=== PATIENT | female | born 1935 | race Caucasian/White ===

== ENCOUNTER 2019-11-25 08:42 | Outpatient (CLI) | payer MEDICARE, OTHER, SELFPAY ==
[2019-11-25 09:19] LABS: Alanine Aminotransferase 13 U/L (4-35); Albumin Level 3.9 g/dL (3.5-5.1); Alkaline Phosphatase 72 U/L (38-126); Aspartate Amino Transferase 20 U/L (14-36); Bilirubin,Total 0.3 mg/dL (0.2-1.3); Blood Urea Nitrogen 20 mg/dL (7-17); Calcium 8.7 mg/dL (8.4-10.2); Carbon Dioxide 26 mmol/L (22-30); Chloride 105 mmol/L (98-107); Cholesterol 215 mg/dL (0-200); Estimated Glomerular Filt Rate > 60; Glucose 102 mg/dL (65-105); HDL Direct 55 mg/dL; Potassium 4.1 mmol/L (3.4-5.0); Sodium 138 mmol/L (137-145); Triglycerides 150 mg/dL (<150)
[2019-11-25 09:30] LABS: LDL Cholesterol Direct 141 mg/dL
== END 2019-11-25 08:43 | disposition home or self-care (01) ==
PROVIDERS: PCP Internal Medicine; Visit Provider Internal Medicine
DX: Z51.81 Encounter for therapeutic drug level monitoring (principal); I10 Essential (primary) hypertension; E78.5 Hyperlipidemia, unspecified; Z79.899 Other long term (current) drug therapy
CPT/HCPCS: 36415; 80053; 80061

== ENCOUNTER 2020-05-28 08:06 | Outpatient (CLI) | payer MEDICARE, OTHER, SELFPAY ==
[2020-05-28 08:39] LABS: Alanine Aminotransferase 11 U/L (4-35); Albumin Level 3.9 g/dL (3.5-5.1); Alkaline Phosphatase 65 U/L (38-126); Aspartate Amino Transferase 21 U/L (14-36); Bilirubin,Total 0.5 mg/dL (0.2-1.3); Blood Urea Nitrogen 17 mg/dL (7-17); Calcium 8.7 mg/dL (8.4-10.2); Carbon Dioxide 29 mmol/L (22-30); Chloride 105 mmol/L (98-107); Cholesterol 222 mg/dL (0-200); Estimated Glomerular Filt Rate > 60; Glucose 104 mg/dL (65-105); HDL Direct 47 mg/dL; Sodium 139 mmol/L (137-145); Triglycerides 179 mg/dL (<150)
[2020-05-28 08:50] LABS: LDL Cholesterol Direct 131 mg/dL
== END 2020-05-28 08:07 | disposition home or self-care (01) ==
LOC: ANHLAB 08:08
PROVIDERS: PCP Internal Medicine; Visit Provider Nurse Practitioner
DX: E78.5 Hyperlipidemia, unspecified (principal)
CPT/HCPCS: 36415; 80053; 80061

== ENCOUNTER 2020-07-29 07:53 | Outpatient (CLI) | payer MEDICARE, OTHER, SELFPAY ==
--- NOTE | ~2020-07-29 | DEXA_ITS ---
Bone Density Report Name: Yady Bajwa Age: 84 Sex: Female Ethnicity: White Date of : 1935 Indication: osteopenia; height loss; prior fracture; Referring Provider: ASHKAN GARCIA Study: Bone densitometry was performed. Exam Date: July 29, 2020 Accession number: [id number] Bone Density: Region BMD T-score Z-score Classification AP Spine (L1-L4) 0.913 -1.2 1.6 Osteopenia Femoral Neck (Left) 0.559 -2.6 -0.2 Osteoporosis Total Hip (Left) 0.655 -2.4 -0.1 Osteopenia Total Hip Bilateral Avg 0.680 -2.2 0.1 Osteopenia Femoral Neck (Right) 0.579 -2.4 0.0 Osteopenia Total Hip (Right) 0.704 -1.9 0.3 Osteopenia World Health Organization criteria for BMD impression classify patients as: Normal (T-score at or above -1.0), Osteopenia (T-score between -1.0 and -2.5), or Osteoporosis (T-score at or below -2.5). 10-year Fracture Risk: FRAX not reported because: Some T-score for Spine Total or Hip Total or Femoral Neck at or below -2.5 Previous Exams: Region Exam Age BMD T-score BMD Change BMD Change Date g/cm2 vs Baseline vs Previous AP Spine(L1-L4) 07/29/2020 84 0.913 -1.2 0.090(10.9%)# -0.001(-0.2%) 06/04/2018 82 0.915 -1.2 0.091(11.1%)# 0.024(2.7%)# 03/26/2014 78 0.890 -1.4 0.067(8.1%)# 0.030(3.4%)* 01/08/2012 76 0.861 -1.7 0.037(4.5%)# -0.010(-1.1%)# 01/03/2011 75 0.870 -1.6 0.047(5.7%)* 0.047(5.7%)* 09/30/2007 71 0.824 -2.0 Total Hip(Left) 07/29/2020 84 0.655 -2.4 -0.053(-7.5%)# -0.009(-1.4%) 06/04/2018 82 0.664 -2.3 -0.044(-6.2%)# -0.041(-5.8%)# 03/26/2014 78 0.705 -1.9 -0.003(-0.5%)# -0.016(-2.3%) 01/08/2012 76 0.721 -1.8 0.013(1.9%)# 0.016(2.3%)# 01/03/2011 75 0.705 -1.9 -0.003(-0.4%) -0.003(-0.4%) 09/30/2007 71 0.708 -1.9 Total Hip(Right) 07/29/2020 84 0.704 -1.9 0.024(3.6%)# -0.013(-1.8%) 06/04/2018 82 0.717 -1.8 0.037(5.4%)# -0.015(-2.0%)# 03/26/2014 78 0.732 -1.7 0.052(7.6%)# 0.002(0.2%) 01/08/2012 76 0.730 -1.7 0.050(7.3%)# 0.014(1.9%)# 01/03/2011 75 0.716 -1.9 0.036(5.3%)* 0.036(5.3%)* 09/30/2007 71 0.680 -2.1 *Denotes significance at 95% confidence level, LSC for AP Spine = 0.022 g/cm2, LSC for Total Hip = 0.027 g/cm2 Clinical Information Provided by Patient: Has had a low trauma fracture Has used the following medications: Fosamax (i.e. alendronate), Vitamin D, Calcium Patient maximum height was 65 Menopause Age: 47 Onset of menses at age 14 Numb
--- NOTE | ~2020-07-29 | MM_ITS ---
EXAMINATION: MM screening meliton BI w nahid HISTORY: Screening TECHNIQUE: Craniocaudal and mediolateral oblique 3-D tomosynthesis images were obtained and synthetic 2-D images were generated. CAD analysis was submitted and interpreted. COMPARISON: No prior mammogram is available for comparison at this institution. BREAST PARENCHYMAL COMPOSITION: There are scattered areas of fibroglandular density. FINDINGS: There is no evidence of suspicious mass, calcification, or architectural distortion to sugg est malignancy in either breast. There has been no suspicious interval change. IMPRESSION: 1. No mammographic evidence of malignancy. 2. Recommend routine screening mammography in one year. BI-RADS Category 1: Negative Reviewed, dictated and finalized at location A.
== END 2020-07-29 07:54 | disposition home or self-care (01) ==
PROVIDERS: PCP Internal Medicine; Visit Provider Internal Medicine
DX: Z12.31 Encounter for screening mammogram for malignant neoplasm of breast (principal); Z78.0 Asymptomatic menopausal state; M85.88 Other specified disorders of bone density and structure, other site; M81.0 Age-related osteoporosis without current pathological fracture; M85.852 Other specified disorders of bone density and structure, left thigh; M85.851 Other specified disorders of bone density and structure, right thigh
CPT/HCPCS: 77063; 77067; 77080

== ENCOUNTER 2020-12-31 09:48 | Outpatient (CLI) | payer MEDICARE, OTHER, SELFPAY ==
[2020-12-31 10:29] LABS: Alanine Aminotransferase 14 U/L (4-35); Albumin Level 3.7 g/dL (3.5-5.1); Alkaline Phosphatase 73 U/L (38-126); Anion Gap 1 mmol/L (8-16); Aspartate Amino Transferase 21 U/L (14-36); Bilirubin,Total 0.8 mg/dL (0.2-1.3); Blood Urea Nitrogen 14 mg/dL (7-17); Calcium 8.8 mg/dL (8.4-10.2); Carbon Dioxide 32 mmol/L (22-30); Chloride 106 mmol/L (98-107); Cholesterol 158 mg/dL (0-200); Estimated Glomerular Filt Rate > 60; Glucose 102 mg/dL (65-105); HDL Direct 48 mg/dL; Potassium 4.2 mmol/L (3.4-5.0); Sodium 139 mmol/L (137-145); Triglycerides 135 mg/dL (<150)
[2020-12-31 10:40] LABS: LDL Cholesterol Direct 78 mg/dL
[2020-12-31 11:16] LABS: Vitamin D 25 Hydroxy 38.3 ng/mL
== END 2020-12-31 09:49 | disposition home or self-care (01) ==
LOC: ANHLAB 09:50
PROVIDERS: PCP Internal Medicine; Visit Provider Internal Medicine
DX: E55.9 Vitamin D deficiency, unspecified (principal); I10 Essential (primary) hypertension; Z79.899 Other long term (current) drug therapy; E78.5 Hyperlipidemia, unspecified
CPT/HCPCS: 36415; 80053; 80061; 82306

== ENCOUNTER 2021-01-04 09:28 | Outpatient (CLI) | payer MEDICARE, OTHER, SELFPAY ==
[2021-01-04 10:17] LABS: Alanine Aminotransferase 13 U/L (4-35); Albumin Level 3.8 g/dL (3.5-5.1); Alkaline Phosphatase 72 U/L (38-126); Anion Gap 3 mmol/L (8-16); Aspartate Amino Transferase 21 U/L (14-36); Bilirubin,Total 0.7 mg/dL (0.2-1.3); Blood Urea Nitrogen 17 mg/dL (7-17); Carbon Dioxide 31 mmol/L (22-30); Chloride 106 mmol/L (98-107); Estimated Glomerular Filt Rate > 60; Glucose 104 mg/dL (65-105); Potassium 4.3 mmol/L (3.4-5.0); Sodium 140 mmol/L (137-145)
== END 2021-01-04 09:29 | disposition home or self-care (01) ==
LOC: ANHLAB 09:33
PROVIDERS: PCP Internal Medicine; Visit Provider Nurse Practitioner
DX: E78.2 Mixed hyperlipidemia (principal); R89.9 Unspecified abnormal finding in specimens from other organs, systems and tissues
CPT/HCPCS: 36415; 80053

== ENCOUNTER 2021-07-06 12:56 | Outpatient (CLI) | payer MEDICARE, OTHER, SELFPAY ==
[2021-07-06 15:35] LABS: Alanine Aminotransferase 13 U/L (4-35); Albumin Level 3.8 g/dL (3.5-5.1); Alkaline Phosphatase 79 U/L (38-126); Anion Gap 7 mmol/L (8-16); Aspartate Amino Transferase 25 U/L (14-36); Bilirubin,Total 0.6 mg/dL (0.2-1.3); Blood Urea Nitrogen 17 mg/dL (7-17); Calcium 9.1 mg/dL (8.4-10.2); Carbon Dioxide 28 mmol/L (22-30); Chloride 104 mmol/L (98-107); Cholesterol 166 mg/dL (0-200); Estimated Glomerular Filt Rate > 60; Glucose 101 mg/dL (65-110); HDL Direct 43 mg/dL; Potassium 4.1 mmol/L (3.4-5.0); Sodium 139 mmol/L (137-145); Triglycerides 147 mg/dL (<150)
[2021-07-06 15:45] LABS: LDL Cholesterol Direct 76 mg/dL
[2021-07-06 17:03] LABS: Vitamin D 25 Hydroxy 36.7 ng/mL
== END 2021-07-06 12:57 | disposition home or self-care (01) ==
LOC: ANHLAB 12:57
PROVIDERS: PCP Internal Medicine; Visit Provider Nurse Practitioner
DX: E55.9 Vitamin D deficiency, unspecified (principal); E78.2 Mixed hyperlipidemia
CPT/HCPCS: 36415; 80053; 80061; 82306

== ENCOUNTER 2021-09-27 16:06 | Outpatient (CLI) | payer MEDICARE, OTHER, SELFPAY ==
--- NOTE | ~2021-09-27 | MM_ITS ---
EXAMINATION: MM screening meliton BI w nahid HISTORY: Screening TECHNIQUE: Craniocaudal and mediolateral oblique 3-D tomosynthesis images were obtained and synthetic 2-D images were generated. CAD analysis was submitted and interpreted. COMPARISON: Comparison to multiple prior studies sequentially, with oldest reviewed study dated 05/11. BREAST PARENCHYMAL COMPOSITION: Breast composed of scattered areas of fibroglandular density. FINDINGS: There is no evidence of suspicious mass, calcification, or architectural distortion to sugg est malignancy in either breast. There has been no suspicious interval change. IMPRESSION: 1. No mammographic evidence of malignancy. 2. Recommend routine screening mammography in one year. BI-RADS Category 1: Negative Reviewed, dictated and finalized at location A. E SOURER
== END 2021-09-27 16:07 | disposition home or self-care (01) ==
LOC: ANHIMG 16:07
PROVIDERS: PCP Internal Medicine; Visit Provider Nurse Practitioner
DX: Z12.31 Encounter for screening mammogram for malignant neoplasm of breast (principal)
CPT/HCPCS: 77063; 77067

== ENCOUNTER 2022-01-16 08:51 | Outpatient (CLI) | payer MEDICARE, OTHER, SELFPAY ==
[2022-01-16 09:39] LABS: Alanine Aminotransferase 14 U/L (4-35); Albumin Level 3.7 g/dL (3.5-5.1); Alkaline Phosphatase 74 U/L (38-126); Anion Gap 6 mmol/L (8-16); Aspartate Amino Transferase 24 U/L (14-36); Bilirubin,Total 0.5 mg/dL (0.2-1.3); Blood Urea Nitrogen 14 mg/dL (7-17); Calcium 8.5 mg/dL (8.4-10.2); Carbon Dioxide 31 mmol/L (22-30); Chloride 102 mmol/L (98-107); Cholesterol 156 mg/dL (0-200); Estimated Glomerular Filt Rate > 60; Glucose 103 mg/dL (65-110); HDL Direct 43 mg/dL; Sodium 139 mmol/L (137-145); Triglycerides 97 mg/dL (<150)
[2022-01-16 09:49] LABS: LDL Cholesterol Direct 71 mg/dL
[2022-01-16 09:56] LABS: Vitamin D 25 Hydroxy 33.8 ng/mL
== END 2022-01-16 08:52 | disposition home or self-care (01) ==
LOC: ANHLAB 08:54
PROVIDERS: PCP Internal Medicine; Visit Provider Internal Medicine
DX: E78.2 Mixed hyperlipidemia (principal); I10 Essential (primary) hypertension; E55.9 Vitamin D deficiency, unspecified
CPT/HCPCS: 36415; 80053; 80061; 82306

== ENCOUNTER 2022-07-21 08:22 | Outpatient (CLI) | payer MEDICARE, OTHER, SELFPAY ==
[2022-07-21 09:07] LABS: Alanine Aminotransferase 17 U/L (6-35); Alkaline Phosphatase 79 U/L (38-126); Anion Gap 12 mmol/L (8-16); Aspartate Amino Transferase 25 U/L (14-36); Bilirubin,Total 0.7 mg/dL (0.2-1.3); Blood Urea Nitrogen 15 mg/dL (7-17); Calcium 8.5 mg/dL (8.4-10.2); Carbon Dioxide 28 mmol/L (22-30); Chloride 101 mmol/L (98-107); Cholesterol 181 mg/dL (0-200); Estimated Glomerular Filt Rate > 60; Glucose 105 mg/dL (65-110); HDL Direct 54 mg/dL; Potassium 3.9 mmol/L (3.4-5.0); Sodium 141 mmol/L (137-145); Triglycerides 91 mg/dL (<150)
[2022-07-21 09:19] LABS: LDL Cholesterol Direct 90 mg/dL
[2022-07-21 09:47] LABS: Vitamin D 25 Hydroxy 29.6 ng/mL
== END 2022-07-21 08:23 | disposition home or self-care (01) ==
PROVIDERS: PCP Internal Medicine; Visit Provider Nurse Practitioner
DX: E78.2 Mixed hyperlipidemia (principal); E55.9 Vitamin D deficiency, unspecified
CPT/HCPCS: 36415; 80053; 80061; 82306

== ENCOUNTER → 2022-09-05 09:00 | Outpatient (CLI) | payer MEDICARE, OTHER, SELFPAY ==
--- NOTE | ~2022-09-05 | DEXA_ITS ---
Bone Density Report Name: PIERRE COREY Age: 86 Sex: Female Ethnicity: White Date of : 1935 Indication: postmenopausal; screening for osteoporosis; height loss; prior fracture; Referring Provider: NESTOR TATE Study: Bone densitometry was performed. Exam Date: September 05, 2022 Accession number: [id number] Bone Density: Region BMD T-score Z-score Classification AP Spine (L1-L4) 0.927 -1.1 1.8 Osteopenia Femoral Neck (Left) 0.599 -2.3 0.3 Osteopenia Total Hip (Left) 0.688 -2.1 0.3 Osteopenia Femoral Neck (Right) 0.568 -2.5 0.0 Osteoporosis Total Hip (Right) 0.720 -1.8 0.5 Osteopenia Total Hip Mean 0.704 -2.0 0.4 Osteopenia World Health Organization criteria for BMD impression classify patients as: Normal (T-score at or above -1.0), Osteopenia (T-score between -1.0 and -2.5), or Osteoporosis (T-score at or below -2.5). 10-year Fracture Risk: FRAX not reported because: Some T-score for Spine Total or Hip Total or Femoral Neck at or below -2.5 Treated for osteoporosis Clinical Information Provided by Patient: Has had a low trauma fracture Is being treated for osteoporosis Has used the following medications: Fosamax (i.e. alendronate), MTV Patient maximum height was 65.0 Menopause Age: 50 No regular weight bearing exercise Drinks caffeinated beverages Onset of menses at age 14 Number of children 2 Impression: The patient has established osteoporosis, based on the Right Femoral Neck T-score and the existence of a prior fracture. The patient has risk factors, including: previous fracture. Discussion: It is important to ask patients whether they are taking their medications and to encourage continued and appropriate compliance with their osteoporosis therapies to reduce fracture risk. It is also important to review their risk factors and encourage appropriate calcium and vitamin D intakes, exercise, fall prevention and other lifestyle measures. Follow-Up: Consider a repeat BMD and Vertebral Fracture Assessment (VFA) exam in 2 years or sooner if medically necessary, to reassess this patient's status. Reported by: DEIRDRE on 09/05/2022 9:48:00 AM. Reviewed, dictated and finalized at location AEmmett SIDHU
== END ==
PROVIDERS: PCP Nurse Practitioner; Visit Provider Nurse Practitioner
DX: Z78.0 Asymptomatic menopausal state (principal); M85.88 Other specified disorders of bone density and structure, other site; M85.852 Other specified disorders of bone density and structure, left thigh; M85.851 Other specified disorders of bone density and structure, right thigh; M81.0 Age-related osteoporosis without current pathological fracture
CPT/HCPCS: 77080

== ENCOUNTER 2022-12-05 16:27 | Outpatient (CLI) | payer MEDICARE, OTHER, SELFPAY ==
--- NOTE | ~2022-12-05 | MM_ITS ---
EXAMINATION: MM screening meliton BI w nahid HISTORY: Screening mammogram TECHNIQUE: Craniocaudal and mediolateral oblique 3-D tomosynthesis images were obtained and synthetic 2-D images were generated. CAD analysis was submitted and interpreted. COMPARISON: 09/27/2021, 07/29/2020, 06/17/2019 bilateral screening mammogram examinations BREAST PARENCHYMAL COMPOSITION: There are scattered areas of fibroglandular density. FINDINGS: There is no evidence of suspicious mass, calcification, or architectural distortion to sugg est malignancy in either breast. There has been no suspicious interval change. IMPRESSION: 1. No mammographic evidence of malignancy. 2. Recommend routine screening mammography in one year. BI-RADS Category 1: Negative Reviewed, dictated and finalized at location A. S [employer]
== END 2022-12-05 16:28 | disposition home or self-care (01) ==
PROVIDERS: PCP Internal Medicine; Visit Provider Nurse Practitioner
DX: Z12.31 Encounter for screening mammogram for malignant neoplasm of breast (principal)
CPT/HCPCS: 77063; 77067

== ENCOUNTER 2023-01-25 08:45 | Outpatient (CLI) | payer MEDICARE, OTHER, SELFPAY ==
[2023-01-25 09:25] LABS: Alanine Aminotransferase 16 U/L (6-35); Alkaline Phosphatase 75 U/L (38-126); Anion Gap 1 mmol/L (8-16); Aspartate Amino Transferase 21 U/L (14-36); Bilirubin,Total 0.9 mg/dL (0.2-1.3); Blood Urea Nitrogen 15 mg/dL (7-17); Calcium 8.7 mg/dL (8.4-10.2); Carbon Dioxide 33 mmol/L (22-30); Chloride 105 mmol/L (98-107); Cholesterol 163 mg/dL (0-200); Estimated Glomerular Filt Rate > 60; Glucose 105 mg/dL (65-110); HDL Direct 53 mg/dL; Potassium 4.2 mmol/L (3.4-5.0); Sodium 139 mmol/L (137-145); Triglycerides 120 mg/dL (<150)
[2023-01-25 09:36] LABS: LDL Cholesterol Direct 72 mg/dL
[2023-01-25 09:47] LABS: Vitamin D 25 Hydroxy 33.8 ng/mL
== END 2023-01-25 08:46 | disposition home or self-care (01) ==
LOC: ANHLAB 08:47
PROVIDERS: PCP Internal Medicine; Visit Provider Internal Medicine
DX: E78.2 Mixed hyperlipidemia (principal); I10 Essential (primary) hypertension; E55.9 Vitamin D deficiency, unspecified
CPT/HCPCS: 36415; 80053; 80061; 82306

== ENCOUNTER 2023-04-18 08:14 | Outpatient (CLI) | payer MEDICARE, OTHER, SELFPAY ==
--- NOTE | 2023-04-18 08:43 | ECHO_ITS ---
Patient Info Name: Yady Bajwa Age: 87 years : 1935 Gender: Female Ht: 65 in Wt: 185 lbs BSA: 1.99 m2 HR: 84 bpm BP: 178 / 91 mmHg Heart Rhythm: Sinus Rhythm Technical Quality: Good Exam Date: 04/18/2023 9:07 AM Exam Location: [facility] Patient Status: Outpatient Admit Date: 04/18/2023 Staff Ordering Physician: Mariaa Pina APRN Filter Press Pumper: Jeronimo Raphael RDCS Attending Provider: Mariaa Pina APRN Referring Physician: Vance LARA Exam Type: CA echo doppler color flow Study Info Indications - murmur Complete two-dimensional, color flow and Doppler transthoracic echocardiogram is performed. Summary 1. Complete two-dimensional, color flow and Doppler transthoracic echocardiogram is performed. 2. Left ventricular chamber dimension is normal. 3. Left ventricular systolic function is normal, estimated at 60-65%. 4. There is mild concentric increased left ventricular wall thickness. 5. The left ventricular diastolic function is grade I diastolic dysfunction. 6. E/e' 43 is significantly elevated. 7. Left atrial chamber dimension is moderately enlarged. 8. There is severe aortic valve sclerosis. 9. There is mild aortic valve stenosis with a peak velocity of 223 cm/s, mean gradient of 13 mmHg, and aortic valve area of 1.6 cm2. 10. The mitral valve has moderately calcified annulus. 11. There is trace tricuspid valve regurgitation. 12. No pulmonary hypertension, estimated pulmonary arterial systolic pressure is 17 mmHg. Left Ventricle E/e' 43 is significantly elevated. Left ventricular chamber dimension is normal. Left ventricular systolic function is normal, estimated at 60-65%. There is mild concentric increased left ventricular wall thickness. The left ventricular diastolic function is grade I diastolic dysfunction. Right Ventricle Right ventricular systolic function is normal and with normal TAPSE 2.4 cm. Right ventricular chamber dimension is normal. Left Atria Left atrial chamber dimension is moderately enlarged. Right Atria Right atrial chamber dimension is normal. Aortic Valve The aortic valve is trileaflet. There is severe aortic valve sclerosis. There is mild aortic valve stenosis with a peak velocity of 223 cm/s, mean gradient of 13 mmHg, and aortic valve area of 1.6 cm2. There is no aortic valve regurgitation. Pulmonic Valve There is no pulmonic regurgitation. Mitral Valve The mitral valve has moderately calcified annulus. There is no mitral valve stenosis. There is no mitral valve regurgitation. Tricuspid Valve There is trace tricuspid valve regurgitation. No pulmonary hypertension, estimated pulmonary arterial systolic pressure is 17 mmHg. Pericardium/Pleural There is no pericardial effusion. Inferior Vena Cava Normal inferior vena cava with >50% collapse upon inspiration consistent with normal right atrial pressure, 5 mmHg. Aorta The aortic root size at the sinus of Valsalva is normal. Left Ventricular Outflow Tract Name Value Normal LVOT 2D LVOT Diameter 2.0 cm LVOT Doppler LVOT Peak Gradient 6 mmHg LVOT Mean Gradient 3 mmHg LVOT VTI 30 cm
== END 2023-04-18 08:15 | disposition home or self-care (01) ==
LOC: ANHCARD 08:15
PROVIDERS: PCP Family Medicine; Visit Provider Nurse Practitioner Family
DX: R01.1 Cardiac murmur, unspecified (principal); I34.2 Nonrheumatic mitral (valve) stenosis
CPT/HCPCS: 93306

== ENCOUNTER 2023-05-11 08:23 | Outpatient (CLI) | payer MEDICARE, OTHER, SELFPAY ==
[2023-05-11 09:55] LABS: Basophils Percent Auto 0.7 % (0.2-1.2); Eosinophils Absolute Auto 0.2 K/mm3 (0-0.3); Hematocrit 39.8 % (37.0-47.0); Hemoglobin 12.7 g/dL (12.0-15.0); Immature Granulocyte Absolute 0.01 K/mm3 (0.00-0.031); Immature Granulocyte Percent A 0.2 % (0-0.5); Lymphocytes Absolute Auto 1.89 K/mm3 (0.9-3.2); Lymphocytes Percent Auto 33.8 % (18.3-44.2); Mean Corpuscular HGB Conc 31.9 g/dl (32-36); Mean Corpuscular Hemoglobin 28.5 pg (26-34); Mean Corpuscular Volume 89.2 fl (80-100); Mean Platelet Volume 9.3 fl (7.4-10.4); Monocytes Absolute Auto 0.6 K/mm3 (0.1-0.6); Monocytes Percent Auto 9.8 % (2.6-8.5); Neutrophils Absolute Auto 2.9 K/mm3 (1.3-6.7); Neutrophils Percent Auto 52.5 % (45.5-73.1); Platelet Count Result 190 k/mm3 (150-375); Red Blood Count 4.46 M/mm3 (4.2-5.4); Red Cell Distribution Width 13.2 % (11.5-14.5); White Blood Count 5.6 K/mm3 (4.5-10.0)
[2023-05-11 10:01] LABS: Alanine Aminotransferase 18 U/L (6-35); Albumin Level 3.9 g/dL (3.5-5.1); Alkaline Phosphatase 69 U/L (38-126); Anion Gap 8 mmol/L (8-16); Aspartate Amino Transferase 24 U/L (14-36); Bilirubin,Total 0.8 mg/dL (0.2-1.3); Blood Urea Nitrogen 16 mg/dL (7-17); Calcium 8.8 mg/dL (8.4-10.2); Carbon Dioxide 32 mmol/L (22-30); Chloride 101 mmol/L (98-107); Estimated Glomerular Filt Rate > 60; Glucose 96 mg/dL (65-110); Potassium 3.7 mmol/L (3.4-5.0); Sodium 141 mmol/L (137-145)
== END 2023-05-11 08:24 | disposition home or self-care (01) ==
LOC: ANHLAB 08:25
PROVIDERS: PCP Family Medicine; Visit Provider Nurse Practitioner Family
DX: I10 Essential (primary) hypertension (principal)
CPT/HCPCS: 36415; 80053; 85025

== ENCOUNTER 2023-09-17 08:18 | Outpatient (CLI) | payer MEDICARE, OTHER, SELFPAY ==
[2023-09-17 09:18] LABS: Alanine Aminotransferase 16 U/L (6-35); Albumin Level 3.8 g/dL (3.5-5.1); Alkaline Phosphatase 67 U/L (38-126); Anion Gap 8 mmol/L (8-16); Aspartate Amino Transferase 23 U/L (14-36); Bilirubin,Total 0.7 mg/dL (0.2-1.3); Blood Urea Nitrogen 21 mg/dL (7-17); Calcium 8.8 mg/dL (8.4-10.2); Carbon Dioxide 26 mmol/L (22-30); Chloride 107 mmol/L (98-107); Cholesterol 187 mg/dL (0-200); Estimated Glomerular Filt Rate > 60; Glucose 105 mg/dL (65-110); HDL Direct 50 mg/dL; Potassium 3.8 mmol/L (3.4-5.0); Sodium 141 mmol/L (137-145); Triglycerides 124 mg/dL (<150)
[2023-09-17 09:31] LABS: Creatinine Urine 157.2 mg/dL
[2023-09-17 09:32] LABS: LDL Cholesterol Direct 97 mg/dL
[2023-09-17 09:35] LABS: MALB Creatinine Ratio 14.4 mg/g (0-30); Microalbumin Urine Random 22.6 mg/L (0-16.7)
[2023-09-17 09:44] LABS: Vitamin D 25 Hydroxy 34.1 ng/mL
== END 2023-09-17 08:19 | disposition home or self-care (01) ==
LOC: ANHLAB 08:20
PROVIDERS: PCP Nurse Practitioner Family; Visit Provider Nurse Practitioner Family
DX: E55.9 Vitamin D deficiency, unspecified (principal); E78.2 Mixed hyperlipidemia; I10 Essential (primary) hypertension
CPT/HCPCS: 36415; 80053; 80061; 82043; 82306

== ENCOUNTER 2024-03-05 13:12 | Outpatient (CLI) | payer MEDICARE, OTHER, SELFPAY ==
--- NOTE | ~2024-03-05 | MM_ITS ---
EXAMINATION: MM screening meliton BI w nahid HISTORY: Screening mammogram TECHNIQUE: Craniocaudal and mediolateral oblique 3-D tomosynthesis images were obtained and synthetic 2-D images were generated. CAD analysis was submitted and interpreted. COMPARISON: 12/05/2022, 09/27/2021 bilateral screening mammogram examinations BREAST PARENCHYMAL COMPOSITION: There are scattered areas of fibroglandular density. FINDINGS: There is no evidence of suspicious mass, calcification, or architectural distortion to sugg est malignancy in either breast. There has been no suspicious interval change. IMPRESSION: 1. No mammographic evidence of malignancy. 2. Recommend routine screening mammography in one year. BI-RADS Category 1: Negative Reviewed, dictated and finalized at location B.
== END 2024-03-05 13:13 | disposition home or self-care (01) ==
LOC: ANHIMG 13:15
PROVIDERS: PCP Nurse Practitioner Family; Visit Provider Family Medicine
DX: Z12.31 Encounter for screening mammogram for malignant neoplasm of breast (principal)
CPT/HCPCS: 77063; 77067

== ENCOUNTER 2024-03-25 08:32 | Outpatient (CLI) | payer MEDICARE, OTHER, SELFPAY ==
[2024-03-25 09:19] LABS: Basophils Percent Auto 0.6 % (0.2-1.2); Eosinophils Absolute Auto 0.2 K/mm3 (0-0.3); Eosinophils Percent Auto 2.7 % (0-4.4); Hematocrit 37.3 % (37.0-47.0); Immature Granulocyte Absolute 0.02 K/mm3 (0.00-0.031); Immature Granulocyte Percent A 0.3 % (0-0.5); Lymphocytes Absolute Auto 2.01 K/mm3 (0.9-3.2); Lymphocytes Percent Auto 28.9 % (18.3-44.2); Mean Corpuscular HGB Conc 32.2 g/dl (32-36); Mean Corpuscular Volume 90.1 fl (80-100); Mean Platelet Volume 9.2 fl (7.4-10.4); Monocytes Absolute Auto 0.6 K/mm3 (0.1-0.6); Monocytes Percent Auto 8.8 % (2.6-8.5); Neutrophils Absolute Auto 4.1 K/mm3 (1.3-6.7); Neutrophils Percent Auto 58.7 % (45.5-73.1); Platelet Count Result 202 k/mm3 (150-375); Red Blood Count 4.14 M/mm3 (4.2-5.4); Red Cell Distribution Width 13.2 % (11.5-14.5)
[2024-03-25 09:32] LABS: Alanine Aminotransferase 17 U/L (6-35); Alkaline Phosphatase 75 U/L (38-126); Anion Gap 3 mmol/L (4-12); Aspartate Amino Transferase 22 U/L (14-36); Bilirubin,Total 0.9 mg/dL (0.2-1.3); Blood Urea Nitrogen 15 mg/dL (7-17); Carbon Dioxide 30 mmol/L (22-30); Chloride 106 mmol/L (98-107); Cholesterol 162 mg/dL (0-200); Estimated Glomerular Filt Rate > 60; Glucose 101 mg/dL (65-110); HDL Direct 50 mg/dL; Potassium 3.9 mmol/L (3.4-5.0); Sodium 139 mmol/L (137-145); Triglycerides 129 mg/dL (<150)
[2024-03-25 09:43] LABS: LDL Cholesterol Direct 90 mg/dL
== END 2024-03-25 08:33 | disposition home or self-care (01) ==
LOC: ANHLAB 08:37
PROVIDERS: PCP Nurse Practitioner Family; Visit Provider Nurse Practitioner Family
DX: I35.0 Nonrheumatic aortic (valve) stenosis (principal); E78.2 Mixed hyperlipidemia; I51.89 Other ill-defined heart diseases; M81.0 Age-related osteoporosis without current pathological fracture; R53.83 Other fatigue; J30.9 Allergic rhinitis, unspecified; Z12.31 Encounter for screening mammogram for malignant neoplasm of breast
CPT/HCPCS: 36415; 80053; 80061; 85025

== ENCOUNTER 2024-04-29 09:18 | Outpatient (CLI) | payer MEDICARE, OTHER, SELFPAY ==
--- NOTE | 2024-04-29 | ECHO_ITS ---
Patient Info Name: Yady Bajwa Age: 88 years : 1935 Gender: Female Ht: 65 in Wt: 176 lbs BSA: 1.94 m2 HR: 75 bpm BP: 160 / 80 mmHg Technical Quality: Fair Exam Date: 04/29/2024 9:59 AM Exam Location: Echo Lab Patient Status: Outpatient Admit Date: 04/29/2024 Staff Ordering Physician: Aidan Dorsey DO Tray Casting Machine Operator: Kaity Pompa RDCS Attending Provider: Aidan Dorsey DO Referring Physician: Willian YI; Exam Type: CA echo doppler color flow Study Info Indications I35.0 - Nonrheumatic aortic (valve) stenosis Complete two-dimensional, color flow and Doppler transthoracic echocardiogram is performed. Summary 1. Complete two-dimensional, color flow and Doppler transthoracic echocardiogram is performed. 2. Left ventricular chamber dimension is normal. 3. Left ventricular systolic function is normal, estimated at 65-70%. 4. There is mild concentric increased left ventricular wall thickness. 5. The left ventricular diastolic function is grade I diastolic dysfunction. 6. E/e' 32 is significantly elevated. 7. Left atrial chamber dimension is mildly enlarged. 8. There is severe aortic valve sclerosis. 9. There is moderate aortic valve stenosis with a peak velocity of 304 cm/s, mean gradient of 18 mmHg, and aortic valve area of 1.4 cm2. 10. The mitral valve has moderately calcified annulus. 11. There is mild mitral valve regurgitation. 12. There is mild tricuspid valve regurgitation. 13. Mild pulmonary hypertension, estimated pulmonary arterial systolic pressure is 48 mmHg. Left Ventricle E/e' 32 is significantly elevated. Left ventricular chamber dimension is normal. Left ventricular systolic function is normal, estimated at 65-70%. There is mild concentric increased left ventricular wall thickness. The left ventricular diastolic function is grade I diastolic dysfunction. Right Ventricle Right ventricular chamber dimension is normal. Right ventricular systolic function is normal. Left Atria Left atrial chamber dimension is mildly enlarged. Right Atria Right atrial chamber dimension is normal. Aortic Valve The aortic valve is trileaflet. There is severe aortic valve sclerosis. There is moderate aortic valve stenosis with a peak velocity of 304 cm/s, mean gradient of 18 mmHg, and aortic valve area of 1.4 cm2. There is no aortic valve regurgitation. Pulmonic Valve There is no pulmonic regurgitation. Mitral Valve The mitral valve has moderately calcified annulus. There is no mitral valve stenosis. There is mild mitral valve regurgitation. Tricuspid Valve There is mild tricuspid valve regurgitation. Mild pulmonary hypertension, estimated pulmonary arterial systolic pressure is 48 mmHg. Pericardium/Pleural There is no pericardial effusion. Inferior Vena Cava Normal inferior vena cava with >50% collapse upon inspiration consistent with normal right atrial pressure, 5 mmHg. Aorta The aortic root size at the sinus of Valsalva is normal. Left Ventricular Outflow Tract Name Value Normal LVOT 2D LVOT Diameter 2.0 cm LVOT Doppler LVOT Peak Gradient 6 mmHg LVOT Mean Gradient 3 mmHg LVOT VTI 30 cm
== END 2024-04-29 09:19 | disposition home or self-care (01) ==
LOC: ANHCARD 09:19
PROVIDERS: PCP Nurse Practitioner Family; Visit Provider Internal Medicine Cardiovascular Disease
DX: I08.3 Combined rheumatic disorders of mitral, aortic and tricuspid valves (principal)
CPT/HCPCS: 93306

== ENCOUNTER 2024-09-29 09:36 | Outpatient (CLI) | payer MEDICARE, OTHER, SELFPAY ==
[2024-09-29 11:23] LABS: Hemoglobin A1C 5.5 % (<5.7)
[2024-09-29 11:24] LABS: Alanine Aminotransferase 14 U/L (6-35); Alkaline Phosphatase 85 U/L (38-126); Anion Gap 4 mmol/L (4-12); Aspartate Amino Transferase 23 U/L (14-36); Bilirubin,Total 0.7 mg/dL (0.2-1.3); Blood Urea Nitrogen 21 mg/dL (7-17); Carbon Dioxide 31 mmol/L (22-30); Chloride 104 mmol/L (98-107); Estimated Glomerular Filt Rate > 60; Glucose 99 mg/dL (65-110); Potassium 3.9 mmol/L (3.4-5.0); Sodium 139 mmol/L (137-145)
[2024-09-29 11:56] LABS: Vitamin D 25 Hydroxy 24.2 ng/mL
== END 2024-09-29 09:37 | disposition home or self-care (01) ==
PROVIDERS: PCP Nurse Practitioner Family; Visit Provider Nurse Practitioner Family
DX: I35.0 Nonrheumatic aortic (valve) stenosis (principal); I51.89 Other ill-defined heart diseases; R73.01 Impaired fasting glucose; M81.0 Age-related osteoporosis without current pathological fracture; N39.41 Urge incontinence; E55.9 Vitamin D deficiency, unspecified; Z79.899 Other long term (current) drug therapy; E78.2 Mixed hyperlipidemia
CPT/HCPCS: 36415; 80053; 82306; 83036; 84443

== ENCOUNTER 2025-03-30 09:20 | Outpatient (CLI) | payer MEDICARE, OTHER, SELFPAY ==
--- OUTSIDE RECORDS SUMMARY | 2025-03-30 10:03 | XMS_ITS | Referral Summary ---
Author Organization [facility] Address [facility] [place] [address] Care Team Providers Care Backroom Associate Name Role Phone Choco Sandhu DO Primary Care Provider [phone] Allergies No known active allergies Medications meloxicam (MOBIC) 15 mg tablet 15 mg daily 8 Active mirabegron ER (MYRBETRIQ) 25 mg tablet extended release 24 hr 25 mg Active alendronate (FOSAMAX) 70 mg tablet 70 mg once a week Active famotidine (PEPCID) 20 mg tablet 20 mg daily Active glucosam aguilera [id number]-[id number]-[id number] -Mn [id number] mg capsule Rx: Glucosamine Chondr 1500 Complx - Capsule Active lisinopril (PRINIVIL,ZESTR IL) 10 mg tablet 10 mg daily Active multivitamin (MULTIPLE VITAMINS ORAL) daily Activ e pravastatin (PRAVACHOL) 40 mg tablet 40 mg daily Active propylene glycol (SYSTANE BALANCE) 0.6 % drops 0.6 % Active Active Problems Problem Noted Date Diagnosed Date 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 At this point in time she had orthotics in her shoes prior to the total knee arthroplasty. 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 Presence of left artificial knee joint 8 Assessment & Plan (04/01/2019 5:22 PM CDT): Continue progressive range of motion and strengthening. We offered manipulation under anesthesia but she does not want to proceed with any further intervention. She will continue working with range of motion on her own. We also offered a TARA Brace to help with further flexion. Again, she work on it on her own. Follow-up as needed Social History Tobacco Use Types Packs/Day Years Used Date Smoking Tobacco: Never Smokeless Tobacco: Never Alcohol Use Standard Drinks/Week Comments Yes 0 (1 standard drink = 0.6 oz pur e alcohol) socially Personal Safety Answer Date Recorded Getting School Help Needed Not on file 01/05 Comments Unknown Sex and Gender Information Value Date Recorded Sex Assigned at Not on file Legal Sex Female 9:13 PM HOME STAGER Gender Identity Not on file Sexual Orientation Not on file Occupation Industry Job Start Date Job End Date retired Not on file Not on file Not on file Last Filed Vital Signs Vital Sign Reading Time Taken Comments Blood Pressure - - Pulse - - Temperature - - Respiratory Rate - - Oxygen Saturation - - Inhaled Oxygen Concentration - - Weight 81.6 kg (180 lb) 04/01/2019 10:22 AM CDT Height 165.1 cm (5' 5) 04/01/2019 10:22 AM CDT Body Mass Index 29.95 04/01/2019 10:22 AM CDT Plan of Treatment Not on file Insurance MEDICARE [employer] Care Teams Backroom Associate Relationship Specialty Start Date End Date Choco Sandhu DO PCP - General Internal Medicine 03/26/19
--- OUTSIDE RECORDS SUMMARY | 2025-03-30 10:03 | XMS_ITS | Continuity of Care Document ---
Author Name [facility] Organization [facility] Care Team Providers Care Tin Recovery Worker Name Role Phone [facility] Unavailable Unavailable Medications Combined list of outpatient medications from Department of Defense and Veterans Affairs facilities.Medications provided include 1) outpatient medications from the last 15 months, and 2) patient-reported medications. Medication Details Route Status Patient Instructions Prescription Expires Prescription Number Last Dispense Date Ordering Provider Order Date Order Qty Source LISINOPRIL (lisinopril ), 20 MG, TABLET, ORAL, EXELAN PHARMACE, 1000 ea. BOTTLE Active [id number] 2023 90 Pharmac y Data Transac tion Service Facilit y Allergies, Adverse Reactions, Alerts Combined list of allergies from Department of Defense and Veterans Affairs facilities. It does not include entries that were removed or entered in error. Substance Category Reaction Severity Reaction type Status Date Reported Comments Source No Known Allergies Drug allergy (disorder) active 11/18/2007 [facility] [place] [place] Immunizations Combined list of available immunizations from the Department of Defense and Veterans Affairs facilities. Immunization Series Date Given Administered By Site Reaction Lot Number CVX Code Drug Police Detective Status Comments Source Influenza, seasonal, injectable 2011 GISEL BUSH [employer] (NOV) Not Given Influenza , seasonal, injectabl e DoD Social History Combined list of available smoking, tobacco, and other social history from Department of Defense and Veterans Affairs facilities. Social History Type Response Date Comment Sourc e This section is an empty social history section. DoD
--- OUTSIDE RECORDS SUMMARY | 2025-03-30 10:03 | XMS_ITS | Clinical Summary ---
Author Organization [facility] Address [address] [place] [address] Care Team Providers Care Ccie Name Role Phone Unavailable Primary Care Provider Unavailabl e Source Comments [facility],non-owned Affiliates and Associated Physician Practices is amultiple site organization consisting of ambulatory clinics and hospital sitesin [place], [place], [place]. This disclosure is being madepursuant to the Care Everywhere program and may not contain all information available regarding this patient. Last updated 18.[facility] Allergies Active Allergy Reactions Criticality Noted Date Comments Eye Drops Unknown 01/30/2018 Unknown name Social History Tobacco Use Types Packs/Day Years Used Date Smoking Tobacco: Never Assessed Comments Unknown Sex and Gender Information Value Date Recorded Sex Assigned at Not on file Legal Sex Female 12:13 PM CDT Gender Identity Not on file Sexual Orientation Not on file Plan of Treatment Health Maintenance Due Date Last Done Comments BONE DENSITY TESTING 1935 DTAP/TDAP/TD VACCINES (1 - Tdap) 1956 PNEUMOCOCCAL VACCINE 50+ (1 of 1 - PCV) 1987 ZOSTER VACCINE (1 of 2) 1987 Respiratory Syncytial Virus (RSV) Vaccine Pt: or over 60 yrs (1 - 1-dose 75+ series) 2012 COVID-19 VACCINE ( - 2023-2 5 season) 2024 DEPRESSION SCREENING 10/22/2024 INFLUENZA VACCINE (Season Ended) 2025 HEPATITIS B VACCINE Aged Out No longe r eligible based on patient's age to complete this topic HIB VACCINE Aged Out No longer eligi ble based on patient's age to complete this topic HPV VACCINE Aged Out No longer eligi ble based on patient's age to complete this topic MENINGOCOCCAL (Group B) VACC INE SHARED DECISION-MAKING Aged Out No longer eligibl e based on patient's age to complete this topic MENINGOCOCCAL GROUPS A/C/Y/W VACCINE Aged Out No longer eligible b ased on patient's age to complete this topic Insurance MEDICARE
--- OUTSIDE RECORDS SUMMARY | 2025-03-30 10:03 | XMS_ITS | Continuity of Care Document ---
Author Organization [facility] Address [address] [place] [address] Phone Care Team Providers Care Prison Warden Name Role Phone Jed Boss Unavailable Unavailable Procedures Procedure Date Eye Exam & Treatment Refraction TF Plastic Sphcyl [place] To +/-4d .12-2d Tint,Any Color/Solid/Grad Vision Svcs Frames Purchases Medical Tax Eye Exam & Treatment No Script Refraction Eye Exam & Treatment Refraction Eye Exam & Treatment Refraction Advance Directives Directive Yes / No Effective Date File Name No Information Encounters Encounter Description Practice Location Reason(s) For Visit Diagnoses Date Provider Providers Copied on Encounter [facility], [address] [place] [address] [address], [place], [place], [address], [place] tel:[phone] [facility] No Information Oct-2 0-201 0 Gera Adkins. [address] , [address], [place], [address], [place]. tel:[phone] [facility], [address], [place], [place], [address], [place] tel:[phone] [facility] No Information Oct-2 0-201 0 [facility] [employer] . [address] [facility], [address], [place], [place], [address], [place]. tel:[phone] Referring Provider: Jed Heredia, [address], [place], [address]. tel:[phone] chao Provider: Ny Mejia, [address] [facility], [place], [place], [facility]. tel:[phone] [facility], [address] [facility] [address], [place], [place], [address], tel:[phone] [facility] No Information Sep-2 4-200 [address] [facility] , [address], [place], [place], [facility], . tel:[phone] [facility], [address], [place], [place], [address], tel:[phone] [facility] No Information Sep-2 4-200 8 Gera Adkins. [address] [place], [place] [address] , [address], [place], [place], [facility], . tel:[phone] [facility], [address] [place] [address] [address], [place], [place], [address], tel:[phone] [facility] No Information Sep-2 0-200 7 Monroy OD Ras. [facility] , [address], [place], [facility], . tel:[phone] Family History Family Member Type Diagnosis Age At Onset No Information Payers Payer name Insurance type Covered democrat ID Authoriza tion(s) [place] [id number] For Life Mdcr Supp CI [id number] Social History Type Description Quantity Date Captured Comments Sex Female Smoking Status No Information Chief Complaint And Reason For Visit No Information Reason For Referral Reason For Referral No Information History Of Present Illness Encounter Date Complaint History Of Prese nt Illness No Information Functional Status Date Functional Assessmen t No Information Instructions Date Instruction Additional Infor mation No Information Assessments Type Assessment Date No Information Patient Care Teams Name Effective Dates (start - stop) Status Members No Information
--- OUTSIDE RECORDS SUMMARY | 2025-03-30 10:03 | XMS_ITS | Clinical Summary ---
Author Organization [facility] Address [address] [place] [address] Care Team Providers Care Network Architect Manager Name Role Phone Choco Sandhu DO Primary Care Provider [phone] Allergies No known active allergies Medications meloxicam (MOBIC) 15 mg tablet 15 mg daily 8 Active mirabegron ER (MYRBETRIQ) 25 mg tablet extended release 24 hr 25 mg Active alendronate (FOSAMAX) 70 mg tablet 70 mg once a week Active famotidine (PEPCID) 20 mg tablet 20 mg daily Active glucosam aguilera ews-klwnzlxlv-A -Mn 312-220-32-3 mg capsule Rx: Glucosamine Chondr 1500 Complx [...] it on her own. 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
[2025-03-30 10:14] LABS: Basophils Percent Auto 0.5 % (0.2-1.2); Eosinophils Absolute Auto 0.2 K/mm3 (0-0.3); Eosinophils Percent Auto 2.6 % (0-4.4); Hematocrit 37.1 % (37.0-47.0); Hemoglobin 11.9 g/dL (12.0-15.0); Immature Granulocyte Absolute 0.02 K/mm3 (0.00-0.031); Immature Granulocyte Percent A 0.3 % (0-0.5); Lymphocytes Absolute Auto 1.64 K/mm3 (0.9-3.2); Lymphocytes Percent Auto 26.6 % (18.3-44.2); Mean Corpuscular HGB Conc 32.1 g/dl (32-36); Mean Corpuscular Hemoglobin 28.7 pg (26-34); Mean Corpuscular Volume 89.6 fl (80-100); Mean Platelet Volume 9.3 fl (7.4-10.4); Monocytes Absolute Auto 0.6 K/mm3 (0.1-0.6); Monocytes Percent Auto 9.1 % (2.6-8.5); Neutrophils Absolute Auto 3.8 K/mm3 (1.3-6.7); Neutrophils Percent Auto 60.9 % (45.5-73.1); Platelet Count Result 193 k/mm3 (150-375); Red Blood Count 4.14 M/mm3 (4.2-5.4); Red Cell Distribution Width 13.6 % (11.5-14.5); White Blood Count 6.2 K/mm3 (4.5-10.0)
[2025-03-30 17:11] LABS: Alanine Aminotransferase 18 U/L (6-35); Albumin Level 3.9 g/dL (3.5-5.1); Alkaline Phosphatase 71 U/L (38-126); Aspartate Amino Transferase 26 U/L (14-36); Calcium 8.8 mg/dL (8.4-10.2); Chloride 105 mmol/L (98-107); Cholesterol 177 mg/dL (0-200); Estimated Glomerular Filt Rate > 60
[2025-03-30 17:12] LABS: Anion Gap 8 mmol/L (4-12); Bilirubin,Total 0.7 mg/dL (0.2-1.3); Carbon Dioxide 24 mmol/L (22-30); Glucose 130 mg/dL (65-110); HDL Direct 48 mg/dL; Potassium 4.1 mmol/L (3.4-5.0); Sodium 137 mmol/L (137-145); Total Protein 6.9 g/dL (6.3-8.2)
[2025-03-30 17:13] LABS: Blood Urea Nitrogen 24 mg/dL (7-17); Triglycerides 169 mg/dL (<150)
[2025-03-30 17:34] LABS: LDL Cholesterol Direct 89 mg/dL
== END 2025-03-30 09:21 | disposition home or self-care (01) ==
LOC: ANHLAB 09:22
PROVIDERS: PCP Nurse Practitioner Family; Visit Provider Nurse Practitioner Family
DX: I51.89 Other ill-defined heart diseases (principal); I35.0 Nonrheumatic aortic (valve) stenosis; E78.2 Mixed hyperlipidemia; M81.0 Age-related osteoporosis without current pathological fracture; E55.9 Vitamin D deficiency, unspecified; Z12.39 Encounter for other screening for malignant neoplasm of breast; E78.5 Hyperlipidemia, unspecified
CPT/HCPCS: 36415; 80053; 80061; 85025

== ENCOUNTER 2025-04-07 07:38 | Outpatient (CLI) | payer MEDICARE, OTHER, SELFPAY ==
--- NOTE | ~2025-04-07 | MM_ITS ---
EXAMINATION: MM screening meliton BI w nahid HISTORY: Screening TECHNIQUE: Craniocaudal and mediolateral oblique 3-D tomosynthesis images were obtained and synthetic 2-D images were generated. CAD analysis was submitted and interpreted. COMPARISON: Comparison to multiple prior studies sequentially, with oldest reviewed study dated 06/04. BREAST PARENCHYMAL COMPOSITION: Not dense: There are scattered areas of fibroglandular density. FINDINGS: There is no evidence of suspicious mass, calcification, or architectural distortion to sugg est malignancy in either breast. There has been no suspicious interval change. IMPRESSION: 1. No mammographic evidence of malignancy. 2. Recommend routine screening mammography in one year. BI-RADS Category 1: Negative Reviewed, dictated and finalized at location A.
--- OUTSIDE RECORDS SUMMARY | 2025-04-07 07:46 | XMS_ITS | Continuity of Care Document ---
Author Name [facility] Organization [facility] Care Team Providers Care Drawer In Dobby Loom Name Role Phone [facility] Unavailable Unavailable Medications Combined list of outpatient medications from Department of Defense and Veterans Affairs facilities.Medications provided include 1) outpatient medications from the last 15 months, and 2) patient-reported medications. Medication Details Route Status Patient Instructions Prescription Expires Prescription Number Last Dispense Date Ordering Provider Order Date Order Qty Source LISINOPRIL (lisinopril ), 20 MG, TABLET, ORAL, EXELAN PHARMACE, 1000 ea. BOTTLE Active [id number] 2023 90 Pharmac y Data Transac tion Service Facilit y Allergies, Adverse Reactions, Alerts Combined list of allergies from Department of Defense and Veterans Affairs facilities. It does not include entries that were removed or entered in error. Substance Category Reaction Severity Reaction type Status Date Reported Comments Source No Known Allergies Drug allergy (disorder) active 11/18/2007 [facility] Blas WEI [facility] Immunizations Combined list of available immunizations from the Department of Defense and Veterans Affairs facilities. Immunization Series Date Given Administered By Site Reaction Lot Number CVX Code Drug Item Processor Status Comments Source Influenza, seasonal, injectable 2011 [...]
--- OUTSIDE RECORDS SUMMARY | 2025-04-07 07:46 | XMS_ITS | Clinical Summary ---
Author Organization [facility] Address 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
--- OUTSIDE RECORDS SUMMARY | 2025-04-07 07:46 | XMS_ITS | Referral Summary ---
Author Organization [facility] Address [facility] [place] [address] Care Team Providers Care Bag Washer Name Role Phone Choco Sandhu DO Primary Care Provider [phone] Allergies No known active allergies Medications meloxicam (MOBIC) 15 mg tablet 15 mg daily 8 Active mirabegron ER (MYRBETRIQ) 25 mg tablet extended release 24 hr 25 mg Active alendronate (FOSAMAX) 70 mg tablet 70 mg once a week Active famotidine (PEPCID) 20 mg tablet 20 mg daily Active glucosam aguilera vzg-oxjhtpmal-H -Mn 041-364-02-3 mg capsule Rx: Glucosamine Chondr 1500 Complx [...] on file 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
--- OUTSIDE RECORDS SUMMARY | 2025-04-07 07:46 | XMS_ITS | Continuity of Care Document ---
Author Organization [facility] Address [address] [place] [address] Phone Care Team Providers Care Sales Office Assistant Name Role Phone Jed Boss Unavailable Unavailable Procedures Procedure Date Eye Exam & Treatment Refraction TF Plastic Sphcyl [place] To +/-4d .12-2d Tint,Any Color/Solid/Grad Vision Svcs Frames Purchases Medical Tax Eye Exam & Treatment No Script Refraction Eye Exam & Treatment Refraction Eye Exam & Treatment Refraction Advance Directives Directive Yes / No Effective Date File Name No Information Encounters Encounter Description Practice Location Reason(s) For Visit Diagnoses Date Provider Providers Copied on Encounter [facility], [address] [place] [address] [address], [place], [place], [address], [place] tel:[phone] [facility] No Information Oct-2 0-201 0 Gera Adkins. [address] , [address], [place], [address], [place]. tel:[phone] [facility], [address], [place], [place], [address], [place] tel:[phone] [facility] No Information Oct-2 0-201 0 [facility] [employer] . [address] [facility], [address], [place], [place], [address], [place]. tel:[phone] Referring Provider: Jed Heredia, [address], [place], [address]. tel:[phone] chao Provider: Ny Mejia, [address] [facility], [place], [place], [facility]. tel:[phone] [facility], [address] [facility] [facility] [address], [place], [place], [address], tel:[phone] [facility] No Information Sep-2 4-200 9 Doiherminia Adkins. [address] [facility] , [address], [place], [place], [facility], . tel:[phone] [facility], [address], [place], [place], [address], tel:[phone] [facility] No Information Sep-2 4-200 8 Gera Adkins. [address] [place], [place] [address] , [address], [place], [place], [facility], . tel:[phone] [facility], [address] [place] [address] [address], [place], [place], [address], tel:[phone] [facility] No Information Sep-2 0-200 7 Monroy OD Ras. [facility] , [address], [place], [place], [facility], . tel:[phone] Family History Family Member Type Diagnosis Age At Onset No Information Payers Payer name Insurance type Covered green party ID Authoriza tion(s) [place] [id number] For Life Mdcr Supp CI [id number] Social History Type Description Quantity Date Captured [...]
--- OUTSIDE RECORDS SUMMARY | 2025-04-07 07:46 | XMS_ITS | Clinical Summary ---
Author Organization [facility] Address [address] [place] [address] Care Team Providers Care Employee Relations Assistant Name Role Phone Unavailable Primary Care Provider Unavailabl e Source Comments [facility],non-owned Affiliates and Associated Physician Practices is amultiple site organization consisting of ambulatory clinics and hospital sitesin [place], [place], [place] and [place]. This disclosure is being madepursuant to the Care Everywhere program and may not contain all information available regarding this patient. Last updated 18.[facility] Allergies Active Allergy Reactions Criticality Noted Date [...]
== END 2025-04-07 07:39 | disposition home or self-care (01) ==
PROVIDERS: PCP Nurse Practitioner Family; Visit Provider Nurse Practitioner Family
DX: Z12.31 Encounter for screening mammogram for malignant neoplasm of breast (principal)
CPT/HCPCS: 77063; 77067

== ENCOUNTER 2025-04-23 08:22 | Outpatient (CLI) | payer MEDICARE, OTHER, SELFPAY ==
--- OUTSIDE RECORDS SUMMARY | 2025-04-23 08:27 | XMS_ITS | Continuity of Care Document ---
Author Organization [facility] Address [address] [place] [address] Phone Care Team Providers Care Health Outreach Worker Name Role Phone Jed Boss Unavailable Unavailable Procedures Procedure Date Eye Exam & Treatment Refraction TF Plastic Sphcyl [place] To +/-4d .12-2d Tint,Any Color/Solid/Grad Vision Svcs Frames Purchases Medical Tax Eye Exam & Treatment No Script Refraction Eye Exam & Treatment Refraction Eye Exam & Treatment Refraction Advance Directives Directive Yes / No Effective Date File Name No Information Encounters Encounter Description Practice Location Reason(s) For Visit Diagnoses Date Provider Providers Copied on Encounter [facility], [address] [place] [address] [address], [place], [place], [address], [place] tel:[phone] [facility] No Information Oct-2 0-201 0 Gera Adkins. [address] , [address], [place], [address], [place]. tel:[phone] [facility], [address], [place], [place], [address], [place] tel:[phone] [facility] No Information Oct-2 0-201 0 [employer] . [address] [facility], [address], [place], [place], [address], [place]. tel:[phone] Referring Provider: Jed Heredia, [address], [place], [address]. tel:[phone] chao Provider: Ny Mejia, 12 [facility], [place], [place], [facility]. tel:[phone] [facility], [address] [facility], [place], [place], [address], tel:[phone] [facility] No Information Sep-2 4-200 9 Doiherminia Adkins. [address] [facility] , [address], [place], [place], [facility], . tel:[phone] [facility], [address], [place], [place], [address], tel:[phone] [facility] No Information Sep-2 4-200 8 Gera Adkins. [address] [place], [place] [address] Center , [address], [place], [place], [facility], . tel:[phone] [facility], [address] [place] [address] [address], [place], [place], [address], tel:[phone] [facility] No Information Sep-2 0-200 7 Monroy OD Ras. [facility] , [address], [place], [place], [facility], . tel:[phone] Family History Family Member Type Diagnosis Age At Onset No Information Payers Payer name Insurance type Covered green party ID Authoriza tion(s) [place] [id number] For Life Mdcr Supp CI [id number] Social History Type Description Quantity Date Captured [...]
--- OUTSIDE RECORDS SUMMARY | 2025-04-23 08:27 | XMS_ITS | Clinical Summary ---
Author Organization [facility] Address [address] [place] [address] Care Team Providers Care Upsetter Helper Name Role Phone Choco Sandhu DO Primary Care Provider [phone] Allergies No known active allergies Medications meloxicam (MOBIC) 15 mg tablet 15 mg daily 8 Active mirabegron ER (MYRBETRIQ) 25 mg tablet extended release 24 hr 25 mg Active alendronate (FOSAMAX) 70 mg tablet 70 mg once a week Active famotidine (PEPCID) 20 mg tablet 20 mg daily Active glucosam aguilera cjs-vrfgbsgmc-W -Mn 508-155-49-3 mg capsule Rx: Glucosamine Chondr 1500 Complx [...] on file 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
--- OUTSIDE RECORDS SUMMARY | 2025-04-23 08:27 | XMS_ITS | Clinical Summary ---
Author Organization [facility] Address [address] [place] [address] Care Team Providers Care Interventional Radiology Rn Name Role Phone Unavailable Primary Care Provider Unavailabl e Source Comments [facility],non-owned Affiliates and Associated Physician Practices is amultiple site organization consisting of ambulatory clinics and hospital sitesin [place], [place], [place] and [place]. This disclosure is being madepursuant to the Care Everywhere program and may not contain all information available regarding this patient. Last updated 18.[facility] Allergies Active Allergy Reactions Criticality Noted Date [...] season) 2024 DEPRESSION SCREENING 10/22/2024 INFLUENZA VACCINE (#1) 2025 HEPATITIS B VACCINE Aged Out No [...]
--- OUTSIDE RECORDS SUMMARY | 2025-04-23 08:27 | XMS_ITS | Referral Summary ---
Author Organization [facility] Address [facility] [place] [address] Care Team Providers Care Meteorology Teacher Name Role Phone Choco Sandhu DO Primary Care Provider [phone] Allergies No known active allergies Medications meloxicam (MOBIC) 15 mg tablet 15 mg daily 8 Active mirabegron ER (MYRBETRIQ) 25 mg tablet extended release 24 hr 25 mg Active alendronate (FOSAMAX) 70 mg tablet 70 mg once a week Active famotidine (PEPCID) 20 mg tablet 20 mg daily Active glucosam aguilera jqb-nmtmivyih-V -Mn 294-914-47-3 mg capsule Rx: Glucosamine Chondr 1500 Complx [...] on file 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
--- OUTSIDE RECORDS SUMMARY | 2025-04-23 08:27 | XMS_ITS | Continuity of Care Document ---
Author Name [facility] Organization [facility] Care Team Providers Care Machine Maintenance Mechanic Name Role Phone [facility] Unavailable Unavailable Medications Combined list of outpatient medications from Department of Defense and Veterans Affairs facilities.Medications provided include 1) outpatient medications from the last 15 months, and 2) patient-reported medications. Medication Details Route Status Patient Instructions Prescription Expires Prescription Number Last Dispense Date Ordering Provider Order Date Order Qty Source LISINOPRIL (lisinopril ), 20 MG, TABLET, ORAL, EXELAN PHARMACE, 1000 ea. BOTTLE Active [id number] 4 2023 90 Pharmac y Data Transac tion Service Facilit y Allergies, Adverse Reactions, Alerts Combined list of allergies from Department of Defense and Veterans Affairs facilities. It does not include entries that were removed or entered in error. Substance Category Reaction Severity Reaction type Status Date Reported Comments Source No Known Allergies Drug allergy (disorder) active 11/18/2007 [facility] Blas WEI ([facility] Immunizations Combined list of available immunizations from the Department of Defense and Veterans Affairs facilities. Immunization Series Date Given Administered By Site Reaction Lot Number CVX Code Drug Wood Carver Hand Status Comments Source Influenza, seasonal, injectable 2011 [...]
--- NOTE | 2025-04-23 08:39 | ECHO_ITS ---
Patient Info Name: Yady Bajwa Age: 89 years : 1935 Gender: Female Ht: 64 in Wt: 180 lbs BSA: 1.95 m2 HR: 68 bpm BP: 160 / 76 mmHg Technical Quality: Good Exam Date: 04/23/2025 8:47 AM Patient Status: O Admit Date: 04/23/2025 Exam Type: CA echo doppler color flow Complete two-dimensional, color flow and Doppler transthoracic echocardiogram is performed. Shop Girl: Allyson Villatoro Attending Provider: Aidan Dorsey DO Summary 1. Complete two-dimensional, color flow and Doppler transthoracic echocardiogram is performed. 2. Left ventricular chamber dimension is normal. 3. Left ventricular systolic function is normal, estimated at 65-70. 4. There is mild concentric increased left ventricular wall thickness. 5. The left ventricular diastolic function is grade I diastolic dysfunction. 6. E/e' 38 is significantly elevated. 7. Left atrial chamber dimension is moderately enlarged. 8. There is severe aortic valve sclerosis. 9. There is severe aortic valve stenosis with a peak velocity of 420 cm/s, mean gradient of 44 mmHg, and aortic valve area of 0.8 cm2. 10. The mitral valve has mildly calcified leaflets and a moderately calcified annulus. 11. There is mild mitral valve regurgitation. 12. There is mild tricuspid valve regurgitation. 13. Mild pulmonary hypertension, estimated pulmonary arterial systolic pressure is 49 mmHg. Left Ventricle E/e' 38 is significantly elevated. Left ventricular chamber dimension is normal. Left ventricular systolic function is normal, estimated at 65-70. There is mild concentric increased left ventricular wall thickness. The left ventricular diastolic function is grade I diastolic dysfunction. Right Ventricle Right ventricular chamber dimension is normal. Right ventricular systolic function is normal and with normal TAPSE 2.1 cm. Left Atria Left atrial chamber dimension is moderately enlarged. Right Atria Right atrial chamber dimension is normal. Aortic Valve The aortic valve is trileaflet. There is severe aortic valve sclerosis. There is severe aortic valve stenosis with a peak velocity of 420 cm/s, mean gradient of 44 mmHg, and aortic valve area of 0.8 cm2. There is no aortic valve regurgitation. Pulmonic Valve There is no pulmonic regurgitation. Mitral Valve The mitral valve has mildly calcified leaflets and a moderately calcified annulus. There is no mitral valve stenosis. There is mild mitral valve regurgitation. Tricuspid Valve There is mild tricuspid valve regurgitation. Mild pulmonary hypertension, estimated pulmonary arterial systolic pressure is 49 mmHg. Pericardium/Pleural There is no pericardial effusion. Inferior Vena Cava Normal inferior vena cava with >50% collapse upon inspiration consistent with normal right atrial pressure, 5 mmHg. Aorta The aortic root size at the sinus of Valsalva is normal. Left Ventricular Outflow Tract Name Value Normal LVOT 2D LVOT Diameter 1.7 cm LVOT Doppler LVOT Peak Velocity 146 cm/s LVOT Peak Gradient 7 mmHg LVOT Mean Gradient 4 mmHg LVOT VTI 40 cm LVOT VTI/AV VTI Ratio 0.4 LVOT Stroke Volume 91 ml LVOT CO 6.1 l/min LVOT CI 3.1 l/min/m2 Pulmonic Valve Name Value Normal RVOT Doppler RVOT Peak Velocity 86 cm/s RVOT Peak Gradient 3 mmHg PV Doppler PV Peak Velocity 100 cm/s PV Peak Gradient 4 mmHg Mitral Valve Name Value Normal MV Doppler MV Peak Gradient 14 mmHg MV Mean Gradient 6 mmHg MV Area (Cont Eq VTI) 1.2 cm2 MV Diastolic Function MV E Peak Velocity 171 cm/s MV A Peak Velocity 158 cm/s MV E/A 1.1 MV Decel Time (PW) 379 ms MV Annular TDI MV E/e' (Septal) 40.1 MV E/e' (Lateral) 36.7 MV E/e' (Average) 38.4 Tricuspid Valve Name Value Normal TV Regurgitation Doppler TR Peak Velocity 331 cm/s TR Peak Gradient 44 mmHg Estimated PAP/RSVP RA Pressure 5 mmHg <=5 PA Systolic Pressure 49 mmHg <36 RV Systolic Pressure 49 mmHg <36 Aortic Valve Name Value Normal AV Doppler AV Peak Velocity 420 cm/s AV Peak Gradient 71 mmHg AV Mean Gradient 44 mmHg AV VTI 113 cm AV Area (Cont Eq VTI) 0.8 cm2 >=3.0 AV Area (Cont Eq Jc) 0.8 cm2 AV DI (Jc) 0.35 AV Regurgitation 2D LVOT Area 2.3 cm2 Ventricles Name Value Normal LV Dimensions 2D/MM IVS Diastolic Thickness (2D) 1.0 cm 0.6-1.0 LVID Diastole (2D) 3.9 cm 3.8-5.2 LVIW Diastolic Thickness (2D) 0.9 cm 0.6-0.9 LVID Systole (2D) 2.2 cm 2.2-3.5 LVOT Diameter 1.7 cm LV Mass (2D Cubed) 110.37 g 67.00-162.00 LV Mass Index (2D Cubed) 57 g/m2 43-95 Relative Wall Thickness (2D) 0.45 <=0.42 LV Fractional Shortening/Ejection Fraction 2D/MM LV Fractional Shortening (2D) 44 % 27-45 LV EF (2D Teichmaria g) 76 % LV Diastolic Volume (4C MOD) 114 ml LV EF (4C MOD) 64 % LV Diastolic Volume (2C MOD) 112 ml LV EF (2C MOD) 62 % LV Diastolic Volume (BP MOD) 113 ml 46-106 LV Diastolic Volume Index (BP MOD) 58 ml/m2 29-61 LV Systolic Volume (BP MOD) 42 ml 14-42 LV Systolic Volume Index (BP MOD) 21 ml/m2 8-24 LV EF (BP MOD) 63 % 54-74 LV Diastolic Length (4C) 8.2 cm LV Systolic Length (4C) 7.2 cm LV Stroke Volume (4C MOD) 73 ml Atria Name Value Normal LA Dimensions LA Volume (4C A-L) 81 ml LA Volume (BP A-L) 80 ml RA Dimensions RA Systolic Major [place] Length (4C) 5.3 cm 2.2-2.8 RA Area (4C) 16.7 cm2 <=18.0 Report Signatures
== END 2025-04-23 08:23 | disposition home or self-care (01) ==
LOC: ANHCARD 08:23
PROVIDERS: PCP Nurse Practitioner Family; Visit Provider Internal Medicine Cardiovascular Disease
DX: I35.0 Nonrheumatic aortic (valve) stenosis (principal); I08.3 Combined rheumatic disorders of mitral, aortic and tricuspid valves
CPT/HCPCS: 93306

== ENCOUNTER 2025-05-28 03:34 | Day surgery (SDC) | payer MEDICARE, OTHER, SELFPAY ==
[2025-05-28] VITALS (7 sets, daily range): BP systolic 134–179; BP diastolic 62–97; PULSE 70–84; RESP 16–22; TEMP 36.6; O2SAT 92–100
--- OUTSIDE RECORDS SUMMARY | 2025-05-28 03:37 | XMS_ITS | Continuity of Care Document ---
Author Name [facility] Organization [facility] Care Team Providers Care Ethologist Name Role Phone [facility] Unavailable Unavailable Allergies, Adverse Reactions, Alerts Combined list of allergies from Department of Defense and Veterans Affairs facilities. It does not include entries that were removed or entered in error. Substance Category Reaction Severity Reaction type Status Date Reported Comments Source No Known Allergies Drug allergy (disorder) active 11/18/2007 [facility] [place] [place] Immunizations Combined list of available immunizations from the Department of Defense and Veterans Affairs facilities. Immunization Series Date Given Administered By Site Reaction Lot Number CVX Code Drug Breastfeeding Program Coordinator Status Comments Source Influenza, seasonal, injectable 2011 GIS[facility] [employer] (P) [facility] (NOV) Not Given Influenza , seasonal, injectabl e DoD Social History Combined list of available smoking, tobacco, and other social history from Department of Defense and Veterans Affairs facilities. Social History Type Response Date Comment Sour e This section is an empty social history section. [facility]
--- OUTSIDE RECORDS SUMMARY | 2025-05-28 03:37 | XMS_ITS | Clinical Summary ---
Author Organization [facility] [employer] Address [address] [place] [address] Care Team Providers Care Escalator Constructor Name Role Phone Unavailable Primary Care Provider Unavailabl e Source Comments [facility] [employer],non-owned Affiliates and Associated Physician Practices is amultiple site organization consisting of ambulatory clinics and hospital sitesin [place], [place], [place] and [place]. This disclosure is being madepursuant to the Care Everywhere program and may not contain all information available regarding this patient. Last updated 18.[facility] [employer] Allergies Active Allergy Reactions Criticality Noted Date [...]
--- OUTSIDE RECORDS SUMMARY | 2025-05-28 03:37 | XMS_ITS | Continuity of Care Document ---
Author Organization [facility] [place] [address] [place] [address] Phone Care Team Providers Care Logistics Analytics Manager Name Role Phone Jed Boss Unavailable Unavailable Procedures Procedure Date Eye Exam & Treatment Refraction TF Plastic Sphcyl [place] To +/-4d .12-2d Tint,Any Color/Solid/Grad Vision Svcs Frames Purchases Medical Tax Eye Exam & Treatment No Script Refraction Eye Exam & Treatment Refraction Eye Exam & Treatment Refraction Advance Directives Directive Yes / No Effective Date File Name No Information Encounters Encounter Description Practice Location Reason(s) For Visit Diagnoses Date Provider Providers Copied on Encounter Merged with [facility], [id number] [place] [address] [address], [place], [place], [id number], [place] tel:[phone] [facility] No Information Oct-2 0-201 0 Gera Adknis. [address] , [address], [place], [address], [place]. tel:[phone] Merged with [facility], [address], [place], [place], [id number], [place] tel:[phone] [facility] No Information Oct-2 0-201 0 [facility] . [address], [address], [place], [place], [address], [place]. tel:[phone] Referring Provider: Jed Heredia, [address], [place], [address]. tel:[phone] chao Provider: Ny Mejia, [address], [place], [place], [facility]. tel:[phone] [facility]ly [facility], [address], [place], [place], [id number], tel:[phone] [facility] No Information Sep-2 4-200 9 Doiherminia Adkins. [address] , [address], [place], [place], [facility], . tel:[phone] Formerly [facility], [address], [place], [place], [id number], tel:[phone] [facility] No Information Sep-2 4-200 8 Gera Adkins. [address] [place], [place] [address] , [address], [place], [place], [facility], . tel:[phone] [facility], [address] [place] [address] [address], [place], [place], [id number], tel:[phone] [facility] No Information Sep-2 0-200 7 Monroy OD Ras. [facility] , [address], [place], [place], [facility], . tel:[phone] Family History Family Member Type Diagnosis Age At Onset No Information Payers Payer name Insurance type Covered alliance party ID Authoriza tion(s) Medicare MD CI [id number] For Life Mdcr Supp CI [id number] Social History Type Description Quantity Date Captured [...]
--- OUTSIDE RECORDS SUMMARY | 2025-05-28 03:37 | XMS_ITS | Clinical Summary ---
Author Organization [facility] Address [address] [place] [address] Care Team Providers Care High Lift Operator Name Role Phone Choco Sandhu DO Primary Care Provider [phone] Allergies No known active allergies Medications meloxicam (MOBIC) 15 mg tablet 15 mg daily 8 Active mirabegron ER (MYRBETRIQ) 25 mg tablet extended release 24 hr 25 mg Active alendronate (FOSAMAX) 70 mg tablet 70 mg once a week Active famotidine (PEPCID) 20 mg tablet 20 mg daily Active glucosam aguilera bsy-yekolrdgn-P -Mn [id number] mg capsule Rx: Glucosamine Chondr 1500 Complx [...] on file 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
--- NOTE | 2025-05-28 07:30 | ECHO_ITS ---
Patient Info Name: Yady Bajwa Age: 89 years : 1935 Gender: Female Ht: 64 in Wt: 175 lbs BSA: 1.92 m2 Technical Quality: Good Exam Date: 05/28/2025 8:02 AM Patient Status: O Admit Date: 05/28/2025 Exam Type: CA echo transesophageal Complete two-dimensional, color flow and Doppler transesophageal study is performed. Conciliator: Eliane Hayes Attending Provider: Aidan Dorsey DO Summary 1. Transesophageal echocardiogram. 2. Left ventricular chamber dimension is normal. 3. Left ventricular systolic function is normal with an ejection fraction of 60-65% by visual estimation. 4. There is mild concentric increased left ventricular wall thickness. 5. The left ventricular diastolic function is indeterminate as it was not assessed. 6. Left atrial chamber dimension is moderately enlarged. 7. There is severe aortic valve sclerosis. 8. There is severe aortic valve stenosis measuring 0.8 cm2 by planimetry. 9. There is mild mitral valve regurgitation. 10. There is trace tricuspid valve regurgitation. Procedure Details Risks/benefits/alternative to DUNCAN discuss with patient and she gave informed consent. Monitored electrocardiographically and in sinus rhythm, vitals with BP 160/80, HR 70 bpm, pulse ox >99%. Given cetacaine spray x1 to back of throat. Fentanyl 25 mcg and Versed 2 mg IV for conscious sedation. Multiple images obtained. Agitated saline injection given. DUNCAN withdrawn and no blood noted on DUNCAN probe tip. Patient tolerated procedure well with no complications. Left Ventricle Left ventricular chamber dimension is normal. Left ventricular systolic function is normal with an ejection fraction of 60-65% by visual estimation. There is mild concentric increased left ventricular wall thickness. The left ventricular diastolic function is indeterminate as it was not assessed. Transesophageal echocardiogram. Right Ventricle Right ventricular chamber dimension is normal. Right ventricular systolic function is normal. Left Atria Left atrial chamber dimension is moderately enlarged. Right Atria Right atrial chamber dimension is normal. Atrial Septum Intact interatrial septum visualized by 2D and agitated saline imaging. Agitated saline injection opacified right side cardiac chambers without shunt to left side cardiac chambers. Atrial Appendage There is no thrombus visualized in the left atrial appendage. Aortic Valve The aortic valve is trileaflet. There is severe aortic valve sclerosis. There is severe aortic valve stenosis measuring 0.8 cm2 by planimetry. There is no aortic valve regurgitation. Pulmonic Valve There is no pulmonic regurgitation. Mitral Valve There is no mitral valve stenosis. There is mild mitral valve regurgitation. Tricuspid Valve There is trace tricuspid valve regurgitation. RVSP is not assessed. Pericardium/Pleural There is no pericardial effusion. Inferior Vena Cava Inferior vena cava is not well visualized. Aorta The aortic root size at the sinus of Valsalva is normal. Aortic Valve Name Value Normal AV 2D/MM AV Area (Planimetry) 0.8 cm2 Report Signatures
[2025-05-28] MEDS: MIDAZOLAM HCL (*CRX) 2 MG/2 ML VIAL IV PUSH (08:30)
[2025-05-28] MEDS: fentaNYL CITRATE INJ (*CRX) 100 MCG/2 ML VIAL 25 MCG IV PUSH (08:30)
== END 2025-05-28 09:43 | disposition home or self-care (01) ==
PROVIDERS: PCP Nurse Practitioner Family; Visit Provider Internal Medicine Cardiovascular Disease
PROC: (CPT 93312; principal; 2025-05-28 08:30)
DX: I08.0 Rheumatic disorders of both mitral and aortic valves (principal); I35.0 Nonrheumatic aortic (valve) stenosis; I11.9 Hypertensive heart disease without heart failure; E78.2 Mixed hyperlipidemia; Z87.891 Personal history of nicotine dependence
CPT/HCPCS: 93312; 93320; 93325; J2250; J3010; J7040

== ENCOUNTER 2025-06-15 01:23 | Day surgery (SDC) | payer MEDICARE, OTHER, SELFPAY ==
[2025-06-15] VITALS (17 sets, daily range): BP systolic 91–167; BP diastolic 42–89; PULSE 75–90; RESP 16–22; TEMP 36.7; O2SAT 96–99; BMI 30.2
[2025-06-15 10:14] LABS: Hematocrit 35.8 % (37.0-47.0); Hemoglobin 11.4 g/dL (12.0-15.0); Immature Granulocyte Percent A 0.3 % (0-0.5); Lymphocytes Absolute Auto 1.66 K/mm3 (0.9-3.2); Mean Corpuscular HGB Conc 31.8 g/dl (32-36); Mean Corpuscular Hemoglobin 28.4 pg (26-34); Mean Corpuscular Volume 89.3 fl (80-100); Nucleated Red Blood Cells Absolute Auto 0.000 K/mm3 (0.0-0.012); Nucleated Red Blood Cells Perc 0.0 % (0.0-0.2); Platelet Count Result 217 k/mm3 (150-375); Red Blood Count 4.01 M/mm3 (4.2-5.4); White Blood Count 6.3 K/mm3 (4.5-10.0)
[2025-06-15 10:36] LABS: Anion Gap 6 mmol/L (4-12); Blood Urea Nitrogen 22 mg/dL (7-17); Calcium 8.9 mg/dL (8.4-10.2); Carbon Dioxide 28 mmol/L (22-30); Chloride 103 mmol/L (98-107); Estimated CRCL calculation 47 ml/min; Estimated Glomerular Filt Rate > 60; Glucose 111 mg/dL (65-110); Potassium 4.2 mmol/L (3.4-5.0); Sodium 137 mmol/L (137-145)
--- NOTE | 2025-06-15 11:18 | WPDHPUPDATE1 ---
History and Physical Update Update Date/Time: 06/15/25 11:18 History and Physical has been reviewed, including an updated exam of the patient. There are NO changes in the patient's condition. Risks, benefits, and alternatives have been discussed and questions answered. Patient agrees to proceed with procedure.
--- NOTE | 2025-06-15 11:18 | WPDMODSED ---
Moderate Sedation Note-Pt Data Patient Data Allergies Allergy/AdvReac Type Severity Reaction Status Date / Time piroxicam Allergy Mild Rash Verified 06/15/25 10:01 Home Medications ?Medication ?Instructions ?Recorded ?Confirmed ?Type ascorbate calcium (vitamin C) 500 500 mg PO DAILY 01/19/22 06/15/25 History mg tablet multivitamin (Daily Multi-Vitamin 1 tablet PO DAILY 01/19/22 06/15/25 History tablet) triamcinolone acetonide 0.1 % 1 applic topical TID PRN leg rash 05/17/23 06/12/25 History topical cream hydrochlorothiazide 12.5 mg tablet 12.5 mg PO .every other day #45 04/28/25 06/15/25 Rx tabs famotidine 20 mg tablet See Rx Instructions .Route 05/04/25 06/15/25 Rx .COMPLEX #90 tabs fluticasone propionate 50 2 spray intranasal DAILY PRN nasal 05/26/25 06/15/25 Rx mcg/actuation nasal congestion #48 mL spray,suspension (Flonase Allergy Relief) atorvastatin 20 mg tablet 20 mg PO DAILY 06/15/25 06/15/25 History lisinopril 20 mg tablet 20 mg PO DAILY 06/15/25 06/15/25 History Sedation/Anesthesia: No previous sedation/anesthesia problems (including family history). [facility] Past Medical History Medical History Gastro-esophageal reflux disease without esophagitis Mixed hyperlipidemia Urge incontinence Vitamin D deficiency Osteopenia Hypertensive crisis Chronic osteoarthritis Allergic rhinitis Surgical History Surgical History Status post open reduction with internal fixation (ORIF) of fracture of ankle History of knee replacement, total History of bilateral tubal ligation Family History Family History Sibling Patient's sister is in good health Mother Family history of dementia Father Acute myocardial infarction Social History Social History Smoking packs per day: 0.5 Smoking cigarettes per day: 10.0 Years smoked: 12 Smoking pack-years: 6.00 Smoking status: Never smoker Tobacco type: cigarettes Second hand tobacco smoke exposure: No Smoking end date: 10/22/1967 Alcohol intake: never Drinks per week: 1 Alcohol use details: social, 1-2 a month Substance use: never Substance use type: does not use Do You Feel Safe in your Home?: Yes Lack of Transportation: No Lack of Food: Never True Current Housing: I Have Housing Concerned About Future Housing: No Difficulty Paying Gas/Electric Bills: No Difficulty Paying for Meds: No Currently Unemployed: No Difficulty w/ Childcare or Family Care: No Living arrangements: alone Occupation/Education: retired Gender identity (if verbalized by the patient): Female Sexual Orientation (if Verbalized by the Patient): Straight or Heterosexual Spiritual care concerns: No Agree to blood products: Yes Mod Sed Physical Exam Physical Exam Pre Procedural Exam: Normal: Lungs, Heart Size, Heart Rate and Heart Rhythm Hours since solid foods: 12 Hours since liquid intake: 12 Mallampati Classification: class II Internal Medicine - PN: Obj Da Vital Signs Vital Signs: Vital Signs - 24 hr 06/15/25 10:08 Temperature 36.7 C Pulse Rate 83 Respiratory Rate 16 Blood Pressure 167/68 H Pulse Oximetry 97 Oxygen Delivery Room Air Labs 06/15/25 10:09 06/15/25 10:09 Labs: Laboratory Results - last 24 hr 06/15/25 10:09 WBC 6.3 RBC 4.01 L Hgb 11.4 L Hct 35.8 L MCV 89.3 MCH 28.4 MCHC 31.8 L RDW 13.7 Plt Count 217 MPV 9.3 Immature Gran % (Auto) 0.3 Neut % (Auto) 61.5 Lymph % (Auto) 26.3 [place] % (Auto) 9.7 H Eos % (Auto) 1.6 Baso % (Auto) 0.6 Lymph # (Auto) 1.66 [place] # (Auto) 0.6 Eos # (Auto) 0.1 Baso # (Auto) 0.0 Abs Immat Gran (auto) 0.02 Absolute Neuts (auto) 3.9 Absolute Nucleated RBC 0.000 Nucleated RBC % 0.0 Sodium 137 Potassium 4.2 Chloride 103 Carbon Dioxide 28 Anion Gap 6 BUN 22 H Creatinine 0.74 Estim Creat Clear Calc 47 Estimated GFR > 60 Glucose 111 H Calcium 8.9 ASA Classification/Sedation ASA Classification/Sedation ASA Class: III Emergent: No Risks: Risks, benefits and alternatives explained and patient/family accepted plan for sedation. Patient re-evaluated immediately prior to sedation.
--- NOTE | 2025-06-15 12:46 | P.PCNCC_ITS ---
Cardiac Cath Procedure Note Date of procedure:: 06/15/25 Performing physician:: CATHETERIZATION LABORATORY REPORT Procedure Date: 06/15/2025 Referring Physician: Dr. Dorsey Anesthesia: Versed and Fentanyl were ordered and given in my presence at 1201, procedure ended at 1232. Supervision of nurse, Julissa Villatoro monitored moderate sedation with 1mg Versed and 25mcg Fentanyl was provided for 31 minutes. Pre-op Diagnosis: Severe aortic stenosis Post-op Diagnosis: Severe aortic stenosis Procedure(s): Left heart catheterization with coronary angiography Access Site: Right radial artery Right brachial vein Brief History and Clinical Indications: All risks, benefits and alternatives to left heart catheterization with or without percutaneous coronary intervention was discussed at length with the patient. Risk of complications including but not limited to bleeding, infection, arrhythmia, stroke, worsening kidney function, blood loss, groin hematoma, limb loss, emergency coronary artery bypass grafting, and even were discussed with the patient and all questions were answered. The patient understood and wished to proceed. Time out called, patient name, date of , medical record number, allergies, procedure performed, identify Seed Potato Cutter, patient and staff member concurred with accurate data, procedure carried on. Findings: LEFT HEART CATHETERIZATION FINDINGS: 1. Left main: The left main coronary artery is widely patent without any significant obstructive disease. 2. Left anterior descending: The LAD and the diagonal branches have mild luminal irregularities without any significant obstructive angiographic disease. 3. Left circumflex: The left circumflex artery is a large dominant vessel and the main marginal branches have mild luminal irregularities without any significant obstructive angiographic disease. 4. Right coronary artery: The RCA is a small caliber nondominant vessel with no angiographic stenosis. 5. Left ventricle: Left ventricle was not access secondary to known severe aortic stenosis. 6. Opening AO pressure 155/62 and closing AO pressure 119/68 RIGHT HEART CATHETERIZATION FINDINGS: Pressures (mmHg): RA: 5 (v 9) RV: 48/8 PA: 50/15 (29) PCWP: 17 (v 23) Saturations (%): PA: 69.1 Arterial: 92.7 CO/CI: Freya: 6/3.2 Description of Procedure: Informed consent signed and placed in the chart. Patient transferred to school laboratory technician room. Prepped and draped in usual sterile fashion. 2% lidocaine injected subcutaneously in right brachial and right wrist area. 22 gauge venipuncture catheter was used to access the right brachial vein via modified Seldinger technique under ultrasound guidance. Six [place] slender sheath was placed and exchanged out for a 7 [place] African sheath. Attention was then turned to gain access to the right radial artery via 22 gauge venipuncture catheter under ultrasound guidance via modified Seldinger technique followed by 6 [place] slender sheath placement. Verapamil 2.5 mg IA was delivered through the right radial sheath. Powderly Paul catheter was advanced on was met with resistance at the level of the subclavian vein. Angiogram performed did not demonstrate any significant stenosis. A Powderly wire was then advanced into the right ventricle and Powderly-Paul catheter balloon was inflated and advanced over this wire smoothly into the right atrium. Powderly wire was then removed and intracardiac and pulmonary pressures were then measured followed by saturations. At time of pressure measurements, the blood pressure by arterial line was 150/60 and thus hydralazine 5 mg IV was given. J wire advanced under fluoroscopy through the right radial sheath. 5F Ultra diagnostic catheter engaged Left Main Coronary Artery and Right Coronary Artery. Multiple orthogonal angiogram obtained and reviewed Hemostasis was achieved by application of TR band. Assessment: No significant coronary artery disease. Post Operative Condition: Stable No significant blood loss Disposition: Home Plan: The patient will be monitored in the recovery area. The above findings were discussed with the referring physician. Continue aggressive medical therapy and risk factor modification. SAVR vs TAVR discussion with referring physician. Fredrick Blank Interventional Cardiology
[2025-06-15] MEDS: SODIUM CHLORIDE 0.9% IV 1,000 ML 125 ML IV CONT (13:25)
== END 2025-06-15 16:46 | disposition home or self-care (01) ==
PROVIDERS: PCP Nurse Practitioner Family; Visit Provider Internal Medicine
PROC: (CPT 93566; principal; 2025-06-15 11:30)
DX: I35.0 Nonrheumatic aortic (valve) stenosis (principal); I11.0 Hypertensive heart disease with heart failure; I50.30 Unspecified diastolic (congestive) heart failure; K21.9 Gastro-esophageal reflux disease without esophagitis; E78.2 Mixed hyperlipidemia; N39.41 Urge incontinence; E55.9 Vitamin D deficiency, unspecified; M85.88 Other specified disorders of bone density and structure, other site; I16.9 Hypertensive crisis, unspecified; M19.90 Unspecified osteoarthritis, unspecified site; Z98.890 Other specified postprocedural states; Z98.51 Tubal ligation status; Z87.891 Personal history of nicotine dependence; Z82.49 Family history of ischemic heart disease and other diseases of the circulatory system
CPT/HCPCS: 36415; 80048; 85025; 93456; C1769; C1887; C1894; J0360; J1644; J2003; J2250; J2305; J3010; J7030; J7040